=== PATIENT | male | born 1965 | race Caucasian/White ===

== ENCOUNTER 2018-03-11 18:36 | Emergency (ER) | payer OTHER ==
[~2018-03-11] VITALS: Ht 177.8 cm; Wt 91.2 kg
[~2018-03-11 18:36] MED LIST: BAYER ASPIRIN325 M1 PO; FLEXERIL; NAPROSYN500 MG; NAPROSYN500 MG PO; NOHOMEMEDICATIONS; NORCO 5-325 TA1 EACH PO; PREDNISONE 10 M10 M1 PO; PREDNISONE 20 M20 M1 PO; PREDNISONE 5 MG5 MG PO; PROAIR HFA8.5 GM IH; VALIUM5 MG PO; ZPAK PO
[2018-03-11] MEDS ORDERED: MOBIC15 MG PO (21:17)
[2018-03-11] MEDS ORDERED: NORCO 5-325 TA1 EACH PO (21:17)
[2018-03-11 21:36] VITALS: BP 143/86
== END 2018-03-11 21:36 | disposition home or self-care (01) ==
LOC: ER 18:36
DX: S29.012A Strain of muscle and tendon of back wall of thorax, initial encounter (principal); M50.222 Other cervical disc displacement at C5-C6 level; F17.210 Nicotine dependence, cigarettes, uncomplicated; Z90.49 Acquired absence of other specified parts of digestive tract; X58.XXXA Exposure to other specified factors, initial encounter; Y92.812 Truck as the place of occurrence of the external cause; Y93.89 Activity, other specified; Y99.8 Other external cause status

== ENCOUNTER 2018-04-15 19:23 | Emergency (ER) | payer OTHER ==
[~2018-04-15] VITALS: Ht 177.8 cm; Wt 89.8 kg
[~2018-04-15 19:23] MED LIST changes: +MOBIC15 MG PO
[2018-04-15] MEDS ORDERED: ACETAMINOPHEN-1 EAC1 PO (20:39)
[2018-04-15] MEDS ORDERED: NAPROSYN500 MG PO (20:39)
[2018-04-15 21:39] VITALS: BP 111/78
== END 2018-04-15 21:40 | disposition home or self-care (01) ==
LOC: ER 19:23
DX: S93.505A Unspecified sprain of left lesser toe(s), initial encounter (principal); I73.9 Peripheral vascular disease, unspecified; F17.210 Nicotine dependence, cigarettes, uncomplicated; Z89.422 Acquired absence of other left toe(s); Z86.73 Personal history of transient ischemic attack (TIA), and cerebral infarction without residual deficits; W00.0XXA Fall on same level due to ice and snow, initial encounter; Y93.89 Activity, other specified; Y92.89 Other specified places as the place of occurrence of the external cause; Y99.8 Other external cause status

== ENCOUNTER 2018-05-04 05:35 | Day surgery (SDC) | payer OTHER ==
[~2018-05-04] VITALS: Ht 177.8 cm; Wt 89.4 kg
[~2018-05-04 05:35] MED LIST changes: +ACETAMINOPHEN-1 EAC1 PO; +CYCLOBENZAPRINE5 MG PO; +PERCOCET 7.5-31 EACH PO
[2018-05-04 07:42] VITALS: BP 121/73
[2018-05-04 08:23] VITALS: BP 121/73
--- NOTE | 2018-05-06 15:07 | PATH ---
[facility] [address] [place] [address] PATHOLOGY RPT PROCEDURE Name: RAMON HARPER Room #: DEP [facility] M.R.#: [id number] Admission: 05/04/18 Date of : 65 Discharge: 05/04/18 Report #: [id number] Path Case #: [id number] [facility] Accession Number: [id number] . 01 Material submitted: . LEFT FOURTH TOE . 01 Clinical history: . Gangrene left fourth toe . 02 Diagnosis: Toe "left foot toe", amputation: - Epidermal ulceration with necrotic epidermis and underlying granulation tissue and inflammation extending into the underlying bone with periosteal fibrosis and granulation tissue. - The inked surgical resection margins appear viable. (SHA/db; 05/06/2018) LBQ/05/06/2018 . 02 Electronically signed: . Kailash Winslow MD, Pathologist NPI- [id number] . 01 Gross description: . Received in formalin labeled "Ramon Harper, left fourth toe," is a partial digit amputation specimen measuring 1.9 x 1.9 x 1.8 cm in greatest dimensions. The bone margin is smooth and concave in appearance, consistent with disarticulation. A nail is present in the nailbed that is pale robles to light brown and grossly unremarkable in appearance. The plantar aspect epidermal surface is irregularly contoured, partially hemorrhagic and possibly previously effaced in appearance. The bone and soft tissue margins are inked black. A full-thickness cross-section is submitted in cassette A1, following decalcification. . Also received within the specimen container is a segment of bone with scant attached pale robles soft tissue measuring 1.1 x 0.8 x 0.5 cm in greatest dimensions. One bone margin is smooth and convex in appearance, consistent with disarticulation. The opposite bone margin is flat in appearance, consistent with transection (inked black). The specimen is bisected and submitted entirely in cassette A2, following decalcification. (DAC; 05/05/2018) XDC/XDC . 02 Pathologist provided ICD-10: L97.529 . 02 [place] [address] PATHOLOGY RPT PROCEDURE Name: RAMON HARPER Room #: [facility] M.R.#: [id number] Admission: 05/04/18 Date of : 65 Discharge: 05/04/18 Report #: [id number] Path Case #: [id number], [id number] Specimen Comment: A courtesy copy of this report has been sent to Specimen Comment: [phone]. Specimen Comment: Report sent to Performed at: [address], [place] [id number] MD Ceferino Millre MD Phone: [phone] Performed at: [address] [id number] MD Cecily Sellers MD Phone: [phone]
== END 2018-05-04 08:51 | disposition home or self-care (01) ==
LOC: OR 05:35 → TBA 05:36 → OR 08:15
DX: I96 Gangrene, not elsewhere classified (principal); F17.210 Nicotine dependence, cigarettes, uncomplicated; Z98.890 Other specified postprocedural states; Z86.73 Personal history of transient ischemic attack (TIA), and cerebral infarction without residual deficits; Z90.49 Acquired absence of other specified parts of digestive tract
CPT/HCPCS: 50010; 50101; 50386; 50951; 56526; 56527; 57091; 62110; 62900; 70005